=== PATIENT | male | born 1990 | race American Indian/Alaskan Native ===

== ENCOUNTER 2020-09-08 07:02 | Emergency (ER) | payer BC ==
[2020-09-08 07:18] VITALS: BP 174/103
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
[2020-09-08 08:47] LABS: Basophils % (Auto) 0.7 % (0.0-1.8); Eosinophils # (Auto) 0.1 K/mm3 (0.0-0.4); Eosinophils % (Auto) 1.3 % (0.0-4.3); Hematocrit 39.5 % (35.5-45.6); Hemoglobin 13.3 gm/dl (11.8-15.2); Lymphocytes # (Auto) 2.6 K/mm3 (1.2-5.4); Lymphocytes % (Auto) 41.5 % (13.4-35.0); Mean Corpuscular HGB Conc 34 % (32-34); Mean Corpuscular Volume 88 fl (84-94); Monocytes # (Auto) 0.5 K/mm3 (0.0-0.8); Monocytes % (Auto) 8.7 % (0.0-7.3); Platelet Count 272 K/mm3 (140-440); Red Blood Count 4.49 M/mm3 (3.65-5.03); Red Cell Distribution Width 13.4 % (13.2-15.2)
[2020-09-08 09:13] LABS: Alanine Aminotransferase 22 units/L (7-56); Albumin 4.4 g/dL (3.9-5); BUN/Creatinine Ratio 18; Blood Urea Nitrogen 18 mg/dL (9-20); Calcium 9.2 mg/dL (8.4-10.2); Hemolysis Index 7
--- NOTE | 2020-09-08 09:33 | XRay Report ---
XR chest routine 2V INDICATION / CLINICAL INFORMATION: chest pain COMPARISON: None available. FINDINGS: SUPPORT DEVICES: None. HEART / MEDIASTINUM: No significant abnormality. LUNGS / PLEURA: Lungs are clear. Costophrenic sulci are sharp. No pneumothorax. ADDITIONAL FINDINGS: No significant additional findings. IMPRESSION: 1. No acute findings. Signer Name: Eric Amin MD Signed: 09/08/2020 9:29 AM Workstation Name: [id number]
--- NOTE | 2020-09-08 10:10 | Electrocardiograph Report ---
[facility] [place] Test Date: 2020-09-08 Test Time: 07:51:27 Pat Name: NGOZI DEAN Department: Room: Gender: M [employer]: VASQUEZ : 1990 Requested By: DAT RAPP Order Number: [id number] Reading MD: Mary Alba Measurements Intervals Welch Rate: 74 P: 46 LA: 174 QRS: 14 QRSD: 86 T: 13 QT: 375 QTc: 416 Interpretive Statements Sinus rhythm Atrial premature complex ST elev, probable normal early repol pattern No previous ECG available for comparison Electronically Signed On 09-08-2020 10:10:33 EDT by Mary Alba
== END 2020-09-08 09:41 | disposition home or self-care (01) ==
LOC: ED 07:02
DX: I10 Essential (primary) hypertension (principal); R07.89 Other chest pain; Z79.899 Other long term (current) drug therapy
CPT/HCPCS: 36415; 71046; 80053; 84484; 85025; 93005